=== PATIENT | female | born 1970 | race Caucasian/White ===

== ENCOUNTER → 2016-12-16 | Outpatient (CLI) | payer OTHER | LOC: OD 14:50 | PROVIDERS: ATTEND Family Medicine | DX: M35.00 Sjogren syndrome, unspecified (principal) | CPT/HCPCS: 36415; 85652; 86038 ==

== ENCOUNTER 2017-07-20 10:49 | Emergency (ER) | payer SELFPAY ==
--- NOTE | 2017-07-20 12:02 | ER Document Report ---
ED General - General Chief Complaint: Fever Stated Complaint: FEVER Time Seen by Provider: 07/20/17 11:48 Notes: 46 yo female c/o URi s/s x 3 wks. no relief with OTC meds. + purulent nasal drainage, + headache, + cough TRAVEL OUTSIDE OF THE [place] IN LAST 30 DAYS: No - HPI Onset/Duration: Gradual, Persistent Quality of pain: Achy Associated symptoms: Body/muscle aches, Chills, Nonproductive cough, Fever, Headache, Nausea, Vomiting, Sinus pain/drainage Exacerbated by: Denies Relieved by: Denies Similar symptoms previously: Yes Recently seen / treated by doctor: Yes - Dr Garner - Related Data Allergies/Adverse Reactions: promethazine HCl [From Phenergan] Allergy (Severe, Verified 10/26/13 04:49) Anaphylaxis cephalexin monohydrate [From Keflex] Allergy (Verified 10/26/13 04:49) Anaphylaxis ciprofloxacin [From Cipro] Allergy (Verified 10/26/13 04:49) Anaphylaxis ciprofloxacin HCl [From Cipro] Allergy (Verified 10/26/13 04:49) lactose [Lactose] Allergy (Verified 10/26/13 04:49) GI upset latex [Latex] Allergy (Verified 10/26/13 04:49) Anaphylaxis metoclopramide HCl [From Reglan] Allergy (Verified 10/26/13 04:49) Anaphylaxis Past Medical History - General Information source: Patient - Social History Smoking Status: Current Every Day Smoker Frequency of alcohol use: None Drug Abuse: None Lives with: Family Family History: Reviewed & Not Pertinent - Past Medical History Cardiac Medical History: Reports: Hx Hypercholesterolemia, Hx Hypertension Denies: Hx Coronary Artery Disease, Hx Heart Attack, Hx Heart Murmur Pulmonary Medical History: Reports: Hx Asthma, Hx Pneumonia Denies: Hx Bronchitis, Hx COPD, Hx Respiratory Failure, Hx Sleep Apnea, Hx Tuberculosis Neurological Medical History: Reports: Hx Cerebrovascular Accident - 2007, Hx Migraine. Denies: Hx Seizures Musculoskeltal Medical History: Reports Hx Arthritis, Reports Hx Fibromyalgia Past Surgical History: Reports: Hx Cholecystectomy, Hx Tubal Ligation - Immunizations Hx Diphtheria, Pertussis, Tetanus Vaccination: Yes Hx Pneumococcal Vaccination: 04/29/11 Review of Systems - Review of Systems Constitutional: See HPI EENT: See HPI Cardiovascular: No symptoms reported Respiratory: Cough Gastrointestinal: Nausea, Vomiting Genitourinary: No symptoms reported Female Genitourinary: No symptoms reported Musculoskeletal: No symptoms reported Skin: No symptoms reported Hematologic/Lymphatic: No symptoms reported Neurological/Psychological: No symptoms reported Physical Exam - Vital signs Interpretation: Normal - General General appearance: Appears well, Alert - HEENT Head: Normocephalic, Atraumatic Eyes: Normal Conjunctiva: Normal Pupils: PERRL Ears: Other - TMs dull Sinus: Tenderness - general sinus tenderness Mucous membranes: Normal, Moist Pharynx: Normal Neck: Normal, Supple - Respiratory Respiratory status: No respiratory distress Chest status: Nontender Breath sounds: Normal Chest palpation: Normal - Cardiovascular Rhythm: Regular Heart sounds: Normal auscultation Murmur: No - Abdominal Inspection: Normal Distension: No distension Bowel sounds: Normal Tenderness: Nontender Organomegaly: No organomegaly - Back Back: Normal, Nontender - Extremities General upper extremity: Normal inspection, Nontender, Normal color, Normal ROM , Normal temperature General lower extremity: Normal inspection, Nontender, Normal color, Normal ROM , Normal temperature, Normal weight bearing. No: Zeke's sign - Neurological Neuro grossly intact: Yes Cognition: Normal Orientation: AAOx4 Radha Coma Scale Eye Opening: Spontaneous [place] Coma Scale Verbal: Oriented [place] Coma Scale Motor: Obeys Commands Radha Coma Scale Total: 15 Speech: Normal Motor strength normal: LUE, RUE, LLE, RLE Sensory: Normal - Psychological Associated symptoms: Normal affect, Normal mood - Skin Skin Temperature: Warm Skin Moisture: Dry Skin Color: Normal Course - Re-evaluation Re-evalutation: 07/20/17 12:08 H&P c/w uncomplicated acute sinustis. no s/s sepsis, meningitis, acute coronary syndrom, respiratory failure. discussed plan, Ed return precautions, FU with PCM. pt agreeable with plan and stable for discharge Discharge - Discharge Clinical Impression: Sinusitis Qualifiers: Sinusitis location: unspecified location Chronicity: acute Recurrence: non- recurrent Qualified Code(s): J01.90 - Acute sinusitis, unspecified Condition: Stable Disposition: HOME, SELF-CARE Instructions: Sinusitis ([facility]), Antibiotic Therapy ([facility]), Antinausea Medication ([facility]), Steroid Medication Additional Instructions: Take antibiotic as prescribed I recommend OTC Mucinex in addition to prescribed medications Gentle sinus rinses Follow up with primary care next week if symptoms persist Prescriptions: Amox Tr/Potassium Clavulanate [Augmentin 875-125 Tablet] 1 tab PO BID 10 Days tablet Fluconazole [Diflucan] 200 mg PO ONCE PRN #1 tablet PRN Reason: Ondansetron [Zofran Odt 4 mg Tablet] 1 - 2 tab PO Q4H #10 tab.rapdis Prednisone 20 mg PO BID #16 tablet
[2017-07-20 12:26] VITALS: BP 121/76
== END 2017-07-20 12:24 | disposition home or self-care (01) ==
LOC: ER 10:49
DX: J01.90 Acute sinusitis, unspecified (principal); R50.9 Fever, unspecified; R09.89 Other specified symptoms and signs involving the circulatory and respiratory systems; R51 Headache; R05 Cough; F17.200 Nicotine dependence, unspecified, uncomplicated
CPT/HCPCS: 99283

== ENCOUNTER → 2017-12-16 | Outpatient (CLI) | payer OTHER ==
[2017-12-16 14:10] LABS: URINE AMPHETAMINES SCREEN NEGATIVE; URINE BARBITURATES SCREEN NEGATIVE; URINE COCAINE SCREEN NEGATIVE; URINE MARIJUANA (THC) SCREEN NEGATIVE; URINE METHADONE SCREEN NEGATIVE; URINE PHENCYCLIDINE SCREEN NEGATIVE
[2017-12-16 14:13] LABS: URINE BENZODIAZEPINES SCREEN UNCONFIRMED POSITIVE
[2017-12-16 14:16] LABS: ANION GAP 8 (5-19); BLOOD UREA NITROGEN 7 mg/dL (7-20); CALCIUM 9.3 mg/dL (8.4-10.2); CARBON DIOXIDE 31 mmol/L (22-30); CHLORIDE 100 mmol/L (98-107); CHOLESTEROL 190.85 mg/dL (0-200); GLUCOSE 94 mg/dL (75-110); POTASSIUM 4.2 mmol/L (3.6-5.0); SODIUM 138.5 mmol/L (137-145); TRIGLYCERIDES 264 mg/dL (<150)
[2017-12-16 14:27] LABS: DIRECT LDL 112 mg/dL (<100)
[2017-12-16 14:31] LABS: VLDL CHOLESTEROL 52.8 mg/dL (10-31)
[2017-12-20 18:37] LABS: OXYCODONE URINE Negative (Cutoff=200); OXYMORPHONE URINE Positive (.)
[2017-12-21 07:47] LABS: OXYCODONE/OXYMORPHONE UR See Final Results ng/mL (Cutoff=200); OXYCODONE/OXYMORPHONE URINE Positive (Cutoff=200); OXYMORPHONE (GC/MS) URINE 209 ng/mL (Cutoff=200)
== END ==
LOC: OD 12:13
PROVIDERS: ATTEND Family Medicine
DX: Z79.899 Other long term (current) drug therapy (principal)
CPT/HCPCS: 36415; 84443; 80048; 80307; 83036; 80061; G0480 ×4

== ENCOUNTER → 2019-01-04 | Outpatient (CLI) | payer SELFPAY ==
[2019-01-04 17:54] LABS: URINE AMPHETAMINES SCREEN NEGATIVE; URINE BARBITURATES SCREEN NEGATIVE; URINE BENZODIAZEPINES SCREEN UNCONFIRMED POSITIVE; URINE COCAINE SCREEN NEGATIVE; URINE MARIJUANA (THC) SCREEN NEGATIVE; URINE METHADONE SCREEN NEGATIVE; URINE PHENCYCLIDINE SCREEN NEGATIVE
[2019-01-04 17:56] LABS: ANION GAP 8 (5-19); BLOOD UREA NITROGEN 9 mg/dL (7-20); CALCIUM 9.5 mg/dL (8.4-10.2); CARBON DIOXIDE 29 mmol/L (22-30); CHLORIDE 98 mmol/L (98-107); CHOLESTEROL 192.04 mg/dL (0-200); GLUCOSE 90 mg/dL (75-110); POTASSIUM 4.4 mmol/L (3.6-5.0); SODIUM 135.1 mmol/L (137-145); TRIGLYCERIDES 312 mg/dL (<150)
[2019-01-04 18:07] LABS: DIRECT LDL 112 mg/dL (<100)
[2019-01-04 18:11] LABS: VLDL CHOLESTEROL 62.4 mg/dL (10-31)
== END ==
LOC: OD 15:58
PROVIDERS: ATTEND Family Medicine
DX: I10 Essential (primary) hypertension (principal); E66.9 Obesity, unspecified; M54.5 Low back pain; Z79.899 Other long term (current) drug therapy
CPT/HCPCS: 80361; 36415; 84443; 80048; 80307; 83036; 80061; G0480 ×4; 80365

== ENCOUNTER → 2020-01-07 | Outpatient (CLI) | payer SELFPAY ==
[2020-01-07 12:39] LABS: URINE AMPHETAMINES SCREEN NEGATIVE; URINE BARBITURATES SCREEN NEGATIVE; URINE BENZODIAZEPINES SCREEN NEGATIVE; URINE COCAINE SCREEN NEGATIVE; URINE MARIJUANA (THC) SCREEN NEGATIVE; URINE METHADONE SCREEN NEGATIVE; URINE PHENCYCLIDINE SCREEN NEGATIVE
[2020-01-07 12:58] LABS: ANION GAP 6 (5-19); BLOOD UREA NITROGEN 5 mg/dL (7-20); CALCIUM 9.3 mg/dL (8.4-10.2); CARBON DIOXIDE 24 mmol/L (22-30); CHLORIDE 103 mmol/L (98-107); CHOLESTEROL 189.06 mg/dL (0-200); GLUCOSE 101 mg/dL (75-110); POTASSIUM 3.9 mmol/L (3.6-5.0); TRIGLYCERIDES 276 mg/dL (<150)
[2020-01-07 13:09] LABS: DIRECT LDL 117 mg/dL (<100)
[2020-01-07 13:14] LABS: VLDL CHOLESTEROL 55.2 mg/dL (10-31)
== END ==
LOC: OD 11:20
PROVIDERS: ATTEND Family Medicine
DX: I10 Essential (primary) hypertension (principal); G45.9 Transient cerebral ischemic attack, unspecified; E66.9 Obesity, unspecified; M54.9 Dorsalgia, unspecified; G89.4 Chronic pain syndrome; Z79.899 Other long term (current) drug therapy
CPT/HCPCS: 80361; 36415; 84443; 80048; 80307; 83036; 80061; G0480 ×2; 80365